=== PATIENT | female | born 1970 | race African-American/Black ===

== ENCOUNTER 2020-11-16 07:33 | Day surgery (SDC) | payer BC ==
[2020-11-10 14:26] VITALS: BMI 26.7
[2020-11-16] MEDS ORDERED: PROPOFOL 20 ML ONE ×3 (07:41)
[2020-11-16] MEDS ORDERED: LIDOCAINE HCL/PF 2% SDV 5ML VIAL ONE (07:41)
[2020-11-16 08:51] VITALS: BP 106/62; TEMP 97.8
[2020-11-16 09:18] VITALS: PULSE 68
== END 2020-11-16 09:05 | disposition home or self-care (01) ==
LOC: FASU-ENDO 07:33
PROVIDERS: ATTEND Internal Medicine Gastroenterology
PROC: 0DJD8ZZ Inspection of Lower Intestinal Tract, Via Natural or Artificial Opening Endoscopic (ICD-10-PCS; principal; 2020-11-16 08:12)
DX: Z12.11 Encounter for screening for malignant neoplasm of colon (principal)